=== PATIENT | male | born 1950 | race Caucasian/White ===

== ENCOUNTER → 2023-05-04 14:52 | Outpatient (BNVA) | payer MEDICARE, OTHER, SELFPAY | PROVIDERS: Visit Provider Hospitalist | DX: Z01.811 Encounter for preprocedural respiratory examination (principal); J45.50 Severe persistent asthma, uncomplicated; J44.9 Chronic obstructive pulmonary disease, unspecified | CPT/HCPCS: 94010; 99202 ==

== ENCOUNTER 2023-07-25 13:02 | Outpatient (AMB) | payer MEDICARE, OTHER, SELFPAY ==
[2023-07-25 13:20] VITALS: BP 120/68; PULSE 76; O2SAT 95; BMI 21.0
--- NOTE | 2023-07-25 13:20 | MHC.OFFVIS ---
Intake Vital Signs 07/25/23 13:20 Height 5 ft 6 in Weight 130 lb BMI 21.0 BP 120/68 Blood Pressure Location Lt brachial Position Sitting Pulse 76 Pulse Source Pulse Oximeter Pulse Oximetry (%) 95 Oxygen Delivery Method Room Air Intake Visit Reasons: Asthma Physical Education Instructor Required: No Allergies Iodinated Contrast Media [IV Dye, Iodine Containing] Allergy (Severe, Unverified 07/25/23 13:22) ANAPHYLAXIS peanut [Peanut] Allergy (Severe, Unverified 07/25/23 13:22) ANAPHYLAXIS codeine [Codeine] Allergy (Unknown, Unverified 07/25/23 13:22) NAUSEA HPI HPI Comments History of Present Illness Details 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 As far as he can remember he has had asthma. The patient recently moved from [place] to the [facility]. Since he moved to the [facility] they had a significant asthma flare-up which he needed high doses of prednisone. The patient did take some time but feels like he is back to his baseline. He is doing well on the Advair 500 and he also takes singular. The patient also has a rescue inhaler that he uses at times. The patient was found to have an inguinal hernia and was evaluated by surgeon. Subheading the surgery but because of his asthma he needs to be further optimized from a respiratory status. In the office we did provide him with nebulized treatment and did do a pulmonary spirometry study. It appears the patient does have an obstructive process which appears to be fixed and therefore asthma COPD overlap syndrome. This appears to be mild in severity. Will optimize his respiratory drive I provided him a nebulizer that he used daily and also add Acapella valve for mucus clearance. We will also switch his Advair to Trelegy to see we can provide better bronchodilation. The patient at this point is medically optimized from a respiratory status may proceed with anesthesia and surgery. 07/25/2023 the patient is here for pulmonary follow-up visit. The patient did undergo a surgery without any apparent complications or issues. He recovered well. However, 2 weeks after she started developing increasing chest tightness and wheezing coughing. He will to coughing spells moderate severity. He start using his nebulizer again because has been helpful. He has been doing at least once a day. He also continues on the Trelegy inhaler. The coughing spells are significant. In the office he does have significant wheezing and rhonchi. Diffuse throughout. We did given 2 DuoNeb treatments. The patient also will receive some Solu-Medrol for the significant wheezing. Patient understands that he will start a course of antibiotics and also prednisone. He will be traveling tomorrow also make sure that he has enough medicine to lasting for a least a couple weeks. The patient needs to get his allergy testing done in addition to that regular blood work to assess his immune system. He will continue with the Trelegy. He also travel with the nebulizer and I did recommend for him to consider a travel nebulizer. Will follow-up in about 4-6 weeks. I which point we will review the data. If the a the patient has any significant allergic induced asthma or eosinophilic asthma will consider biologic therapy at that point. [facility] Medical History (Updated 07/25/23 @ 22:51 by Gage Piña MD) Asthma-COPD overlap syndrome Pre-op chest exam Asthma Social History (Updated 05/04/23 @ 15:24 by NORBERT Lainez) Patient Tobacco Use Status: Never used Tobacco Review of Systems Const Denies fever(s) Eyes Denies change in vision ENT Reports nasal congestion Card Denies chest pain and Reports dyspnea on exertion Resp Reports change in phlegm color, Reports chest congestion, Reports cough, Reports dyspnea on exertion and Reports wheezing GI Reports as per HPI Musc Reports no additional complaints Skin/Breast Denies rash Neuro Reports no additional complaints Manav/Lymph Denies easy bleeding and Denies lymphadenopathy Aller/Immun Reports wheezing Physical Exam Vital Signs: Last Vital Signs Pulse 76 07/25/23 13:20 BP 120/68 07/25/23 13:20 Pulse Ox 95 07/25/23 13:20 Oxygen Delivery Method Room Air 07/25/23 13:20 BMI result Body Mass Index 21.0 Const General: comfortable HEENT Head: Yes normocephalic Neck Neck: Yes supple Chest Chest palpation & inspection: normal inspection of the chest Resp Effort & Inspection: normal respiratory effort, Actively coughing Quality: actively coughing and prolonged expiratory phase Auscultation: rhonchi, wheezes and diminished lung sounds Cardio Rate: regular rate Rhythm: regular rhythm Heart sounds: S1 normal heart sound present and S2 normal heart sound present GI Palpation (GI): Soft to palpation Skin General skin exam: no rashes or lesions noted Extrem General: Yes no clubbing, cyanosis or edema Office Procedures Nebulizer Treatment Nebulizer Treatment 05301-Yphhawtyl/MDI RX initial, or Nebulizer Subsequent Treatment Office Meds methylprednisolone sod suc(PF) 125 mg/2 mL solution for injection Performing Provider: Gaeg Piña MD Performing Location: [facility] Administered by: Michelle Conley LPN on 07/25/23 14:27 Dose Route Admin Location Dispensed Lot Number Expiration Date [place] [employer] 125 mg IM left buttock 2 mL [id number] 08/05/25 6885-7667-75 [employer] ipratropium 0.5 mg-albuterol 3 mg (2.5 mg base)/3 mL nebulization soln Performing Provider: Gage Piña MD Performing Location: [facility] Administered by: Michelle Conley LPN on 07/25/23 14:29 Dose Route Admin Location Dispensed Lot Number Expiration Date NDC [employer] 3 mL inhalation 3 mL [id number] 11/05/24 0904-9879-53 [employer] Assessment & Plan Assessment & Plan (1) Asthma: Code(s): J45.909 - Unspecified asthma, uncomplicated Qualifiers: Asthma complication type: with acute exacerbation Asthma persistence: persistent Asthma severity: severe Qualified Code(s): J45.51 - Severe persistent asthma with (acute) exacerbation (2) Asthma-COPD overlap syndrome: Code(s): J44.9 - Chronic obstructive pulmonary disease, unspecified (3) Tracheobronchitis: Code(s): J40 - Bronchitis, not specified as acute or chronic Plan Duonebs x 2 Solumedrol 125mg IM x 1 Start Doxycycline x 10 days Prednisone taper Bloodword / Allergy testing. May benefit from Biologic therapy cotniune Trelegy 200 DEYA as needed nebulizer requesting an acapella valve-has not received it CPT with acapella valve continue singulair F/U 3-4 weeks Orders: Orders AMB Nebulizer Treatment Today J45.909 - Unspecified asthma, uncomplicated AMB Methylprednisolone Injection Today J45.909 - Unspecified asthma, uncomplicated Medications: New prednisone PO daily; Take 4 tabs x 5 days, then 3 tabs x 5 days, then 2 tabs daily x 5 days, then 1 tab x 5 days to complete. 20 days 50 tabs 0RF doxycycline monohydrate 100 mg PO BID 14 days 28 tabs 0RF Coding Level of Care Code Est Pt Level 5 (82982) Diagnoses Severe persistent asthma with acute exacerbation J45.51 Asthma complication type: with acute exacerbation Asthma persistence: persistent Asthma severity: severe Asthma-COPD overlap syndrome J44.9 Tracheobronchitis J40 CPT Codes Nebulizer Treatment - Nebulizer Treatment, initial or subsequent: [id number]/MDI RX initial, or Nebulizer Subsequent Treatment ([id number]) Time Spent (min) 60
== END 2023-07-25 14:10 | disposition home or self-care (01) ==
PROVIDERS: PCP Internal Medicine; Visit Provider Hospitalist
DX: J45.909 Unspecified asthma, uncomplicated (principal)
CPT/HCPCS: 99215

== ENCOUNTER → 2023-07-25 13:02 | Outpatient (BNVA) | payer MEDICARE, OTHER, SELFPAY | PROVIDERS: PCP Internal Medicine; Visit Provider Hospitalist | DX: J45.51 Severe persistent asthma with (acute) exacerbation (principal); J44.9 Chronic obstructive pulmonary disease, unspecified; J40 Bronchitis, not specified as acute or chronic | CPT/HCPCS: 94640; 96372; 99212; J2930 ==

== ENCOUNTER 2023-08-30 10:26 | Outpatient (AMB) | payer MEDICARE, OTHER, SELFPAY ==
[2023-08-30 10:35] VITALS: BP 126/70; PULSE 90; O2SAT 98; BMI 21.0
--- NOTE | 2023-08-30 10:35 | A.OFFVIS_ITS ---
Intake Vital Signs 08/30/23 10:35 Height 5 ft 6 in Weight 129 lb 13.636 oz BMI 21.0 BP 126/70 Blood Pressure Location Lt brachial Position Sitting Pulse 90 Pulse Source Pulse Oximeter Pulse Oximetry (%) 98 Oxygen Delivery Method Room Air Intake Visit Reasons: lab results Payroll Consultant Required: No Allergies Iodinated Contrast Media [IV Dye, Iodine Containing] Allergy (Severe, Unverified 08/30/23 10:37) ANAPHYLAXIS peanut [Peanut] Allergy (Severe, Unverified 08/30/23 10:37) ANAPHYLAXIS codeine [Codeine] Allergy (Unknown, Unverified 08/30/23 10:37) NAUSEA HPI HPI Comments History of Present Illness Details 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 As far as he can remember he has had asthma. The patient recently moved from [place] to the [facility]. Since he moved to the [facility] they had a significant asthma flare-up which he needed high doses of prednisone. The patient did take some time but feels like he is back to his baseline. He is doing well on the Advair 500 and he also takes singular. The patient also has a rescue inhaler that he uses at times. The patient was found to have an inguinal hernia and was evaluated by surgeon. Subheading the surgery but because of his asthma he needs to be further optimized from a respiratory status. In the office we did provide him with nebulized treatment and did do a pulmonary spirometry study. It appears the patient does have an obstructive process which appears to be fixed and therefore asthma COPD overlap syndrome. This appears to be mild in severity. Will optimize his respiratory drive I provided him a nebulizer that he used daily and also add Acapella valve for mucus clearance. We will also switch his Advair to Trelegy to see we can provide better bronchodilation. The patient at this point is medically optimized from a respiratory status may proceed with anesthesia and surgery. 07/25/2023 the patient is here for pulmon [place] follow-up visit. The patient did undergo a surgery without any apparent complications or issues. He recovered well. However, 2 weeks after she started developing increasing chest tightness and wheezing coughing. He will to coughing spells moderate severity. He start using his nebulizer again because has been helpful. He has been doing at least once a day. He also continues on the Trelegy inhaler. The coughing spells are significant. In the office he does have significant wheezing and rhonchi. Diffuse throughout. We did given 2 DuoNeb treatments. The patient also will receive some Solu-Medrol for the significant wheezing. Patient understands that he will start a course of antibiotics and also prednisone. He will be traveling tomorrow also make sure that he has enough medicine to lasting for a least a couple weeks. The patient needs to get his allergy testing done in addition to that regular blood work to assess his immune system. He will continue with the Trelegy. He also travel with the nebulizer and I did recommend for him to consider a travel nebulizer. Will follow-up in about 4-6 weeks. I which point we will review the data. If the a the patient has any significant allergic induced asthma or eosinophilic asthma will consider biologic therapy at that point. 08/30/2023 the patient is here for a pul [place] follow-up visit. He has been having significant chest tightness and also had worsening productive cough. It seems like the cough has subsided some but he still complains the chest tightness. Moderate severity. He has been using his respiratory therapy. Also been using nebulizer. We try getting a sputum culture today but he was not able. We did review his blood work that he had done recently. He has eosinophils are significantly elevated at 900. Also, his IgE is elevated above 4k. The patient has significant allergies to Aspergillus among other mold allergies. 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 The patient has significant wheezing at this time. He will need additional prednisone. At this point due to his severe asthma and allergic components he will be a great candidate for Dupixent. We will send the prescription to the pharmacy to start it. Will await a results of the sputum culture. I will also request a chest x-ray to assess for any central bronchiectasis typical of ABPA. The patient does live in an old house. There is definitely mold in the basement and also potentially upstairs. I did request that he try to avoid the mold if possible specially in the basement. 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 Pre-op chest exam Asthma Social History (Updated 05/04/23 @ 15:24 by NORBERT Lainez) Patient Tobacco Use Status: Never used Tobacco Review of Systems Const Denies fever(s) Eyes Denies change in vision ENT Reports nasal congestion Card Denies chest pain and Reports dyspnea on exertion Resp Reports change in phlegm color, Reports chest congestion, Reports cough, Reports dyspnea on exertion and Reports wheezing GI Reports as per HPI Musc Reports no additional complaints Skin/Breast Denies rash Neuro Reports no additional complaints Manav/Lymph Denies easy bleeding and Denies lymphadenopathy Aller/Immun Reports wheezing Physical Exam Vital Signs: Last Vital Signs Pulse 90 08/30/23 10:35 BP 126/70 08/30/23 10:35 Pulse Ox 98 08/30/23 10:35 Oxygen Delivery Method Room Air 08/30/23 10:35 BMI result Body Mass Index 21.0 Const General: comfortable HEENT Head: Yes normocephalic Neck Neck: Yes supple Chest Chest palpation & inspection: normal inspection of the chest Resp Effort & Inspection: normal respiratory effort, Actively coughing Quality: actively coughing and prolonged expiratory phase Auscultation: rhonchi, wheezes and diminished lung sounds Cardio Rate: regular rate Rhythm: regular rhythm Heart sounds: S1 normal heart sound present and S2 normal heart sound present GI Palpation (GI): Soft to palpation Skin General skin exam: no rashes or lesions noted Extrem General: Yes no clubbing, cyanosis or edema Assessment & Plan Assessment & Plan (1) Asthma: Code(s): J45.909 - Unspecified asthma, uncomplicated Qualifiers: Asthma severity: severe Asthma persistence: persistent Asthma complication type: with acute exacerbation Qualified Code(s): J45.51 - Severe persistent asthma with (acute) exacerbation (2) Asthma-COPD overlap syndrome: Code(s): J44.9 - Chronic obstructive pulmonary disease, unspecified (3) ABPA (allergic bronchopulmonary aspergillosis): Code(s): B44.81 - Allergic bronchopulmonary aspergillosis Plan start Dupixent Prednisone taper sputum culture CXR cotniune Trelegy 200 daily DEYA as needed nebulizer CPT with acapella valve continue singulair F/U 8 weeks Orders: Orders XR chest 2V Today J40 - Bronchitis, not specified as acute or chronic Medications: New prednisone PO daily; Take 2 tabs daily x 14 days, then 1 tab daily x 14 days 28 days 42 tabs 0RF Coding Level of Care Code Est Pt Level 4 (77983) Diagnoses Severe persistent asthma with acute exacerbation J45.51 Asthma severity: severe Asthma persistence: persistent Asthma complication type: with acute exacerbation Asthma-COPD overlap syndrome J44.9 ABPA (allergic bronchopulmonary aspergillosis) B44.81 Time Spent (min) 17
== END 2023-08-30 11:08 | disposition home or self-care (01) ==
PROVIDERS: PCP Internal Medicine; Visit Provider Hospitalist
DX: J45.51 Severe persistent asthma with (acute) exacerbation (principal); J44.9 Chronic obstructive pulmonary disease, unspecified; B44.81 Allergic bronchopulmonary aspergillosis
CPT/HCPCS: 99214

== ENCOUNTER 2023-08-30 10:26 | Outpatient (REF) | payer MEDICARE, OTHER, SELFPAY ==
--- NOTE | ~2023-08-30 | XR_ITS ---
EXAMINATION: XR CHEST 2 VIEWS CLINICAL INFORMATION: Bronchitis. COMPARISON: None. TECHNIQUE: Frontal and lateral views of the chest were obtained. FINDINGS: The heart, great vessels, pulmonary vasculature and mediastinum are normal. The lungs show no focal infiltrate, effusion or pneumothorax. There is mild hyperinflation. There is no acute osseous abnormality. XR/XR chest 2V IMPRESSION: No active cardiopulmonary disease. There is mild hyperinflation.
== END 2023-08-30 10:27 | disposition home or self-care (01) ==
LOC: HO.XRAY 10:26
PROVIDERS: PCP Internal Medicine; Visit Provider Hospitalist
DX: J40 Bronchitis, not specified as acute or chronic (principal); J45.51 Severe persistent asthma with (acute) exacerbation; B44.81 Allergic bronchopulmonary aspergillosis; Z79.899 Other long term (current) drug therapy
CPT/HCPCS: 71046; 99212

== ENCOUNTER 2023-09-14 09:54 | Outpatient (AMB) | payer MEDICARE, OTHER, SELFPAY ==
[2023-09-14 13:44] VITALS: BP 110/62; PULSE 92; O2SAT 99
--- NOTE | 2023-09-14 13:44 | MHC.OFFVIS ---
Intake Vital Signs 09/14/23 13:44 Height 5 ft 6 in BP 110/62 Blood Pressure Location Lt brachial Position Sitting Pulse 92 Pulse Source Pulse Oximeter Pulse Oximetry (%) 99 Oxygen Delivery Method Room Air Intake Visit Reasons: Dupixent teach Allergies Iodinated Contrast Media [IV Dye, Iodine Containing] Allergy (Severe, Unverified 09/14/23 13:44) ANAPHYLAXIS peanut [Peanut] Allergy (Severe, Unverified 09/14/23 13:44) ANAPHYLAXIS codeine [Codeine] Allergy (Unknown, Unverified 09/14/23 13:44) NAUSEA Medication List - Last Reconciled 09/14/23 by Emma Pollard LPN acetaminophen (Tylenol Extra Strength) 500 mg PO Q6H PRN albuterol sulfate 90 mcg/actuation 2 puffs inhalation Q4H PRN amoxicillin-pot clavulanate 875-125 mg 1 tab PO BID 10 days aspirin (Ailyn Low Dose Aspirin) 81 mg PO DAILY calcium carbonate-vitamin D3 600 mg-20 mcg (800 unit) (Caltrate 600 plus D) 1 tab PO QAM carboxymethylcellulose-glycern 0.5-0.9 % (Refresh Optive) 1 drp ophthalmic (eye) BID cetirizine (Zyrtec) 10 mg PO DAILY PRN cholecalciferol (vitamin D3) 25 mcg PO DAILY dupilumab (Dupixent) 300 mg (2 mL) subcut Q2W 12 months fluticasone propionate 50 mcg/actuation sprays intranasal xoawirsysai-daczxkflf-qpyltexg 200-62.5-25 mcg (Trelegy Ellipta) 1 inh inhalation DAILY 30 days guaifenesin ER (Mucinex) 1,200 mg PO Q12H magnesium citrate 250 mg PO DAILY montelukast 10 mg PO DAILY kcwuzeamewec-uhavllhy-xaskkj 1 tab PO DAILY omeprazole 20 mg PO DAILY prednisone PO daily; Take 2 tabs daily x 14 days, then 1 tab daily x 14 days 28 days sumatriptan succinate mg PO HPI Dupixent teach HPI Details Father 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 Medication Dupixent 300mg/2mL pre-filled pen (patient?s own meds) Loading dose of 600mg given by the patient in 2 SQ injections; injection #1 R thigh;? injection #2 L thigh? Lot# [id number] expires 07/06/2025. Patient aware his next injection is in 15 days. Nurse visit only.? 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
== END 2023-09-14 11:08 | disposition home or self-care (01) ==
PROVIDERS: PCP Internal Medicine; Visit Provider Hospitalist
DX: J44.9 Chronic obstructive pulmonary disease, unspecified (principal)

== ENCOUNTER → 2023-09-14 09:54 | Outpatient (BNVA) | payer MEDICARE, OTHER, SELFPAY | PROVIDERS: PCP Internal Medicine; Visit Provider Hospitalist | DX: J44.9 Chronic obstructive pulmonary disease, unspecified (principal) | CPT/HCPCS: 99211 ==

== ENCOUNTER 2023-10-09 10:23 | Outpatient (REF) | payer MEDICARE, OTHER, SELFPAY | END 2023-10-09 10:24 | disposition home or self-care (01) | LOC: HO.LAB 10:23 | PROVIDERS: Visit Provider Hospitalist | DX: J40 Bronchitis, not specified as acute or chronic (principal); J45.51 Severe persistent asthma with (acute) exacerbation | CPT/HCPCS: 87070; 87205 ==

== ENCOUNTER 2023-10-11 14:45 | Outpatient (REF) | payer MEDICARE, OTHER, SELFPAY ==
--- NOTE | ~2023-10-11 | XR_ITS ---
EXAMINATION: XR CHEST CLINICAL INFORMATION: Cough. COMPARISON: Chest radiograph 08/30/2023. TECHNIQUE: 2 views of the chest were obtained. FINDINGS: Normal appearance of the cardiomediastinal silhouette. Slightly increased central peribronchial cuffing. Questionable very subtle focal hazy airspace opacities projecting over the right lower lobe. Increased streaky opacities projecting over the retrocardiac region. No pleural effusion. No pneumothorax. Thoracic spondylosis. No acute osseous findings. Visualized upper abdomen is within normal limits. XR/XR chest 2V IMPRESSION: Findings are suspicious for an atypical infectious/inflammatory process with subtle infiltrates in the right lower lobe, and infiltrates versus worsening subsegmental atelectasis in the left lower lobe. Recommend short-term follow-up chest radiograph after treatment.
== END 2023-10-11 14:46 | disposition home or self-care (01) ==
LOC: HO.XRAY 14:45
PROVIDERS: PCP Internal Medicine; Visit Provider Nurse Practitioner Family
DX: J18.0 Bronchopneumonia, unspecified organism (principal); J44.9 Chronic obstructive pulmonary disease, unspecified
CPT/HCPCS: 71046; 94640; 99212; J2930

== ENCOUNTER 2023-10-11 14:45 | Outpatient (AMB) | payer MEDICARE, OTHER, SELFPAY ==
[2023-10-11 14:51] VITALS: BP 138/70; PULSE 66; O2SAT 96; BMI 21.0
--- NOTE | 2023-10-11 14:51 | MHC.OFFVIS ---
Intake Vital Signs 10/11/23 14:51 Height 5 ft 6 in Weight 130 lb BMI 21.0 BP 138/70 Blood Pressure Location Lt brachial Position Sitting Pulse 66 Pulse Source Pulse Oximeter Pulse Oximetry (%) 96 Oxygen Delivery Method Room Air Intake Visit Reasons: persistent cough Web Programmer Required: No Varitype Operator: Varitype Operator offered & declined Accompanied by: Self / Same As Patient Allergies Iodinated Contrast Media [IV Dye, Iodine Containing] Allergy (Severe, Unverified 10/11/23 14:55) ANAPHYLAXIS peanut [Peanut] Allergy (Severe, Unverified 10/11/23 14:55) ANAPHYLAXIS codeine [Codeine] Allergy (Unknown, Unverified 10/11/23 14:55) NAUSEA Medication List - Last Reconciled 10/11/23 by Michelle Conley LPN acetaminophen (Tylenol Extra Strength) 500 mg PO Q6H PRN albuterol sulfate 90 mcg/actuation 2 puffs inhalation Q4H PRN aspirin (Ailyn Low Dose Aspirin) 81 mg PO DAILY calcium carbonate-vitamin D3 600 mg-20 mcg (800 unit) (Caltrate 600 plus D) 1 tab PO QAM carboxymethylcellulose-glycern 0.5-0.9 % (Refresh Optive) 1 drp ophthalmic (eye) BID cetirizine (Zyrtec) 10 mg PO DAILY PRN cholecalciferol (vitamin D3) 25 mcg PO DAILY doxycycline hyclate 100 mg PO BID 10 days dupilumab (Dupixent) 300 mg (2 mL) subcut Q2W 12 months fluticasone propionate 50 mcg/actuation sprays intranasal owikyxytiuu-whqlfbxgp-eritatts 200-62.5-25 mcg (Trelegy Ellipta) 1 inh inhalation DAILY 30 days guaifenesin ER (Mucinex) 1,200 mg PO Q12H magnesium citrate 250 mg PO DAILY montelukast 10 mg PO DAILY azltldcztzev-pyononfk-kyyrep 1 tab PO DAILY omeprazole 20 mg PO DAILY prednisone PO daily; Take 6 tabs daily x 3 days, then 5 tabs x 3 days, then 4 tabs x 3 days, then 3 tabs x 3 days, then 2 tabs daily x 3 days, then 1 tab x 3 days to complete. 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 He recently started Dupixent last month as he was suboptimally controlled on Trelegy and xopenex nebulizer PRN. He was seen two weeks ago for a sick visit, started on doxycyline and used xopenx with minimal improvements in symptoms. Today he presents with continued symptoms of chest tightness, dyspnea, chest congestion, and productive cough with green sputum. He reports a fever of 101.2 at the start of symptoms, but has not had any fevers since. He denies chills or sick contacts. He had called the office today and Dr. Piña has sent in azithromycin 500 mg x 5 days and an extended course of prednisone but given continuation of symptoms suggested patient come in for evaluation. 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 Pre-op chest exam Asthma Social History (Updated 05/04/23 @ 15:24 by Chrissy Marr [facility]) Patient Tobacco Use Status: Never used Tobacco Review of Systems Const Denies chills, Denies excessive sweating, Denies headache(s) and Denies night sweats Eyes Denies dry eyes, Denies irritation and Denies itchy eyes ENT Reports Normal hearing present, Denies headache(s), Denies nasal congestion, Denies nasal discharge, Denies post nasal drip and Denies sore throat Card Denies chest pain, Denies chest pain at rest, Denies chest pain with activity, Denies claudication, Denies leg edema, Denies orthopnea and Denies paroxysmal nocturnal dyspnea Resp Denies pain on inspiration, Denies pain with cough, Denies stridor and Denies wheezing Musc Denies myalgias Neuro Reports Normal hearing present and Denies headache(s) Endo Denies excessive sweating Manav/Lymph Denies lymphadenopathy Aller/Immun Denies itchy eyes, Denies seasonal rhinorrhea and Denies wheezing Physical Exam Vital Signs: Last Vital Signs Pulse 66 10/11/23 14:51 BP 138/70 10/11/23 14:51 Pulse Ox 96 10/11/23 14:51 Oxygen Delivery Method Room Air 10/11/23 14:51 BMI result Body Mass Index 21.0 Const General: cooperative, well developed and alert Nutritional Appearance: thin Orientation/consciousness: patient oriented x3 Limitations: no limitations HEENT Head: Yes normal to inspection, Yes normocephalic and Yes atraumatic Ears: hearing grossly normal bilaterally and external ears normal Eyes General: appearance normal, both eyes and all related structures Eyelids: Yes eyelids normal Sclerae: sclerae normal EOM: EOMs intact bilaterally Neck Neck: Yes normal visual inspection and Yes no lymphadenopathy Lymphatic: no lymphadenopathy noted Chest Chest palpation & inspection: normal inspection of the chest Resp Other: coarse rhonchi and expiratory wheezing throughout, minimally improved with nebulizer Effort & Inspection: normal respiratory effort, able to speak in complete sentences, no audible wheezes, no stridor, not tachypneic, no tripod positioning and no use of accessory muscles Cardio Jugular venous distension: no JVD Rate: regular rate Rhythm: regular rhythm Skin Other: warm, dry General skin exam: no rashes or lesions noted Neuro General: patient oriented x3 Cranial nerves: Yes Normal hearing present Cognition (Neuro): normal cognition Gait exam (Neuro): Normal gait present Extrem General: Yes normal to inspection, Yes capillary refill normal, Yes no clubbing, cyanosis or edema and Yes no pedal edema Psych Appearance: grossly normal and well kempt Speech and movement: Normal speech and movement present and Clear speech present Affect: normal affect Attitude: cooperative Thought process: Normal thought process present Thought content: Normal thought content present Insight: Good insight present (Psych) Judgement: Good judgement present (Psych) Office Procedures Nebulizer Treatment Nebulizer Treatment [id number]/MDI RX initial, or Nebulizer Subsequent Treatment Office Meds methylprednisolone sod suc(PF) 125 mg/2 mL solution for injection Performing Provider: Emily Huitron NP Performing Location: [facility] [place] [facility] Administered by: Michelle Conley LPN on 10/11/23 15:35 Dose Route Admin Location Dispensed Lot Number Expiration Date [facility] [employer] 125 mg IM left buttock 2 mL [id number] 02/03/26 3704-6328-19 [employer] levalbuterol HCl 1.25 mg/3 mL solution for nebulization Performing Provider: Emily Huitron NP Performing Location: [facility] [place] [facility] Administered by: Michelle Conley LPN on 10/11/23 15:38 Dose Route Admin Location Dispensed Lot Number Expiration Date [facility] [employer] 1.25 mg inhalation 3 mL [id number] 02/03/25 59361-181-06 [employer] Assessment & Plan Assessment & Plan (1) Asthma-COPD overlap syndrome: Code(s): J44.9 - Chronic obstructive pulmonary disease, unspecified Plan Patient with bronchitic symptoms that have been unchanged despite doxycyline. He was sent azithromycin and an extended course of prednisone today by Dr. Piña. Sputum performed on 10/09 but unfortunately was contaminated. On exam patient with coarse rhonchi and expiratory wheezing as well as persistent hacking cough throughout visit. He was given a nebulizer treatment in office as well as solumedrol. Advised patient to obtain CXR today and start previously prescribed medications. Patient aware if symptoms do not improve to call office and seek emergent care if they worsen. All questions were answered and patient is in agreement of plan. Will follow up with Dr. Piña for regularly scheduled appointment or sooner if needed. Orders: Orders AMB Methylprednisolone Injection Today J44.9 - Chronic obstructive pulmonary disease, unspecified, J45.909 - Unspecified asthma, uncomplicated AMB Nebulizer Treatment Today J44.9 - Chronic obstructive pulmonary disease, unspecified, J45.909 - Unspecified asthma, uncomplicated XR chest 2V Today J18.0 - Bronchopneumonia, unspecified organism Medications: New levalbuterol HCl 1.25 mg (3 mL) inhalation Q4-6H PRN 90 mL 3RF shortness of breath or wheezing Coding Level of Care Code Est Pt Level 4 (61745) Diagnoses Asthma-COPD overlap syndrome J44.9 CPT Codes Nebulizer Treatment - Nebulizer Treatment, initial or subsequent: [id number]/MDI RX initial, or Nebulizer Subsequent Treatment ([id number])
== END 2023-10-11 15:46 | disposition home or self-care (01) ==
PROVIDERS: PCP Internal Medicine; Visit Provider Nurse Practitioner Family
DX: J44.9 Chronic obstructive pulmonary disease, unspecified (principal); J45.909 Unspecified asthma, uncomplicated
CPT/HCPCS: 99214

== ENCOUNTER 2023-10-18 09:25 | Outpatient (AMB) | payer MEDICARE, OTHER, SELFPAY ==
[2023-10-18 09:30] VITALS: BP 128/70; PULSE 89; O2SAT 97; BMI 20.6
--- NOTE | 2023-10-18 09:30 | A.OFFVIS_ITS ---
Intake Vital Signs 10/18/23 09:30 Height 5 ft 6 in Weight 127 lb 13.89 oz BMI 20.6 BP 128/70 Blood Pressure Location Lt brachial Position Sitting Pulse 89 Pulse Source Pulse Oximeter Pulse Oximetry (%) 97 Oxygen Delivery Method Room Air Intake Visit Reasons: Emphysema Carbonizer Tester Required: No Allergies Iodinated Contrast Media [IV Dye, Iodine Containing] Allergy (Severe, Unverified 10/18/23 09:33) ANAPHYLAXIS peanut [Peanut] Allergy (Severe, Unverified 10/18/23 09:33) ANAPHYLAXIS codeine [Codeine] Allergy (Unknown, Unverified 10/18/23 09:33) NAUSEA HPI HPI Comments History of Present Illness Details 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 As far as he can remember he has had asthma. The patient recently moved from [place] to the [facility]. Since he moved to the [facility] they had a significant asthma flare-up which he needed high doses of prednisone. The patient did take some time but feels like he is back to his baseline. He is doing well on the Advair 500 and he also takes singular. The patient also has a rescue inhaler that he uses at times. The patient was found to have an inguinal hernia and was evaluated by surgeon. Subheading the surgery but because of his asthma he needs to be further optimized from a respiratory status. In the office we did provide him with nebulized treatment and did do a pulmonary spirometry study. It appears the patient does have an obstructive process which appears to be fixed and therefore asthma COPD overlap syndrome. This appears to be mild in severity. Will optimize his respiratory drive I provided him a nebulizer that he used daily and also add Acapella valve for mucus clearance. We will also switch his Advair to Trelegy to see we can provide better bronchodilation. The patient at this point is medically optimized from a respiratory status may proceed with anesthesia and surgery. 07/25/2023 the patient is here for pulmon anabel follow-up visit. The patient did undergo a surgery without any apparent complications or issues. He recovered well. However, 2 weeks after she started developing increasing chest tightness and wheezing coughing. He will to coughing spells moderate severity. He start using his nebulizer again because has been helpful. He has been doing at least once a day. He also continues on the Trelegy inhaler. The coughing spells are significant. In the office he does have significant wheezing and rhonchi. Diffuse throughout. We did given 2 DuoNeb treatments. The patient also will receive some Solu-Medrol for the significant wheezing. Patient understands that he will start a course of antibiotics and also prednisone. He will be traveling tomorrow also make sure that he has enough medicine to lasting for a least a couple weeks. The patient needs to get his allergy testing done in addition to that regular blood work to assess his immune system. He will continue with the Trelegy. He also travel with the nebulizer and I did recommend for him to consider a travel nebulizer. Will follow-up in about 4-6 weeks. I which point we will review the data. If the a the patient has any significant allergic induced asthma or eosinophilic asthma will consider biologic therapy at that point. 08/30/2023 the [facility] He has been having significant chest tightness and also had worsening productive cough. It seems like the cough has subsided some but he still complains the chest tightness. Moderate severity. He has been using his respiratory therapy. Also been using nebulizer. We try getting a sputum culture today but he was not able. We did review his blood work that he had done recently. He has eosinophils are significantly elevated at 900. Also, his IgE is elevated above 4k. The patient has significant allergies to Aspergillus among other mold allergies. 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 The patient has significant wheezing at this time. He will need additional prednisone. At this point due to his severe asthma and allergic components he will be a great candidate for Dupixent. We will send the prescription to the pharmacy to start it. Will await a results of the sputum culture. I will also request a chest x-ray to assess for any central bronchiectasis typical of ABPA. The patient does live in an old house. There is definitely mold in the basement and also potentially upstairs. I did request that he try to avoid the mold if possible specially in the basement. 10/18/2023 the patient is here for a pul [facility] follow-up visit. Recently was evaluated by 1 of my colleagues because of worsening respiratory symptoms. Apparently he was doing fairly well until he went down to [facility] The patient the patient developed fevers and also chest congestion and decided to drive back to the [place]. He started developing worsening symptoms. He did call the office and we did send medications the pharmacy. However he was not getting any better and he was then evaluated by 1 of my colleagues. X-ray demonstrated bilobar atypical looking pneumonia. He was kept on the azithromycin and then he was then placed on Vantin. He has 4 more days of Vantin. He is also weaning down the prednisone down to 40 mg and will be starting 30 mg tomorrow. Although he still has significant chest tightness and wheezing rhonchi. Therefore will provide him with Solu-Medrol today with hope that he can continue to wean down the prednisone. In addition to that he will continue with his antibiotics. We were able to get a sputum culture sent that to the microbiology laboratory. Will have the patient return 2 weeks, in the meantime in the meantime he is going to continue with current respiratory regimen. 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 Pre-op chest exam Asthma Social History (Updated 05/04/23 @ 15:24 by Chrissy Marr [facility]) Patient Tobacco Use Status: Never used Tobacco Review of Systems Const Denies fever(s) Eyes Denies change in vision ENT Reports hoarseness and Reports nasal congestion Card Denies chest pain and Reports dyspnea on exertion Resp Reports change in phlegm color, Reports chest congestion, Reports cough, Denies hemoptysis, Reports dyspnea on exertion and Reports wheezing GI Reports as per HPI Musc Reports no additional complaints Skin/Breast Denies rash Neuro Reports no additional complaints Manav/Lymph Denies easy bleeding and Denies lymphadenopathy Aller/Immun Reports wheezing Physical Exam Vital Signs: Last Vital Signs Pulse 89 10/18/23 09:30 BP 128/70 10/18/23 09:30 Pulse Ox 97 10/18/23 09:30 Oxygen Delivery Method Room Air 10/18/23 09:30 BMI result Body Mass Index 20.6 Const General: comfortable HEENT Head: Yes normocephalic Neck Neck: Yes supple Chest Chest palpation & inspection: normal inspection of the chest Resp Effort & Inspection: normal respiratory effort, Actively coughing Quality: actively coughing and prolonged expiratory phase Auscultation: rhonchi, wheezes and diminished lung sounds Cardio Rate: regular rate Rhythm: regular rhythm Heart sounds: S1 normal heart sound present and S2 normal heart sound present GI Palpation (GI): Soft to palpation Skin General skin exam: no rashes or lesions noted Extrem General: Yes no clubbing, cyanosis or edema Office Meds methylprednisolone sod suc(PF) 125 mg/2 mL solution for injection Performing Provider: Gage Piña MD Performing Location: [facility] [place] [facility] Administered by: Emma Pollard LPN on 10/18/23 09:55 Dose Route Admin Location Dispensed Lot Number Expiration Date [employer] 125 mg IM R buttock 2 mL [id number] 11/05/25 9687-3059-39 [employer] Assessment & Plan Assessment & Plan (1) Asthma: Code(s): J45.909 - Unspecified asthma, uncomplicated Qualifiers: Asthma complication type: with acute exacerbation Asthma persistence: persistent Asthma severity: severe Qualified Code(s): J45.51 - Severe persistent asthma with (acute) exacerbation (2) Asthma-COPD overlap syndrome: Code(s): J44.9 - Chronic obstructive pulmonary disease, unspecified (3) ABPA (allergic bronchopulmonary aspergillosis): Code(s): B44.81 - Allergic bronchopulmonary aspergillosis (4) Bronchopneumonia: Code(s): J18.0 - Bronchopneumonia, unspecified organism Plan continue vantin continue prednisone taper, will receive Solumedrol IM x 1 today as well sputum cx continue Dupixent cotniune Trelegy 200 daily DEYA as needed nebulizer CPT with acapella valve continue singulair F/U 2 weeks Orders: Orders Sputum Cult + Gram stain Today J18.0 - Bronchopneumonia, unspecified organism AMB Methylprednisolone Injection Today J44.9 - Chronic obstructive pulmonary disease, unspecified Coding Level of Care Code Est Pt Level 4 (94473) Diagnoses Severe persistent asthma with acute exacerbation J45.51 Asthma complication type: with acute exacerbation Asthma persistence: persistent Asthma severity: severe Asthma-COPD overlap syndrome J44.9 ABPA (allergic bronchopulmonary aspergillosis) B44.81 Bronchopneumonia J18.0 Time Spent (min) 18
== END 2023-10-18 09:59 | disposition home or self-care (01) ==
PROVIDERS: PCP Internal Medicine; Visit Provider Hospitalist
DX: J45.51 Severe persistent asthma with (acute) exacerbation (principal); J44.9 Chronic obstructive pulmonary disease, unspecified; B44.81 Allergic bronchopulmonary aspergillosis; J18.0 Bronchopneumonia, unspecified organism
CPT/HCPCS: 99214

== ENCOUNTER 2023-10-18 09:25 | Outpatient (REF) | payer MEDICARE, OTHER, SELFPAY | END 2023-10-18 09:26 | disposition home or self-care (01) | LOC: HO.LNP 09:25 | PROVIDERS: PCP Internal Medicine; Visit Provider Hospitalist | DX: J18.0 Bronchopneumonia, unspecified organism (principal); J43.9 Emphysema, unspecified; J45.51 Severe persistent asthma with (acute) exacerbation; B44.81 Allergic bronchopulmonary aspergillosis | CPT/HCPCS: 87070; 87077; 87185; 87205; 96372; 99212; J2930 ==

== ENCOUNTER 2023-11-02 10:23 | Outpatient (AMB) | payer MEDICARE, OTHER, SELFPAY ==
[2023-11-02 10:38] VITALS: BP 118/60; PULSE 80; O2SAT 98; BMI 20.6
--- NOTE | 2023-11-02 10:38 | MHC.OFFVIS ---
Intake Vital Signs 11/02/23 10:38 Height 5 ft 6 in Weight 127 lb 13.89 oz BMI 20.6 BP 118/60 Blood Pressure Location Rt brachial Position Sitting Pulse 80 Pulse Source Pulse Oximeter Pulse Oximetry (%) 98 Oxygen Delivery Method Room Air Intake Visit Reasons: Emphysema Packaging Technician Required: No Allergies Iodinated Contrast Media [IV Dye, Iodine Containing] Allergy (Severe, Unverified 11/02/23 10:40) ANAPHYLAXIS peanut [Peanut] Allergy (Severe, Unverified 11/02/23 10:40) ANAPHYLAXIS codeine [Codeine] Allergy (Unknown, Unverified 11/02/23 10:40) NAUSEA HPI HPI Comments History of Present Illness Details 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 As far as he can remember he has had asthma. The patient recently moved from [place] to the [facility]. Since he moved to the [facility] they had a significant asthma flare-up which he needed high doses of prednisone. The patient did take some time but feels like he is back to his baseline. He is doing well on the Advair 500 and he also takes singular. The patient also has a rescue inhaler that he uses at times. The patient was found to have an inguinal hernia and was evaluated by surgeon. Subheading the surgery but because of his asthma he needs to be further optimized from a respiratory status. In the office we did provide him with nebulized treatment and did do a pulmonary spirometry study. It appears the patient does have an obstructive process which appears to be fixed and therefore asthma COPD overlap syndrome. This appears to be mild in severity. Will optimize his respiratory drive I provided him a nebulizer that he used daily and also add Acapella valve for mucus clearance. We will also switch his Advair to Trelegy to see we can provide better bronchodilation. The patient at this point is medically optimized from a respiratory status may proceed with anesthesia and surgery. 07/25/2023 the patient is here for pulmonary follow-up visit. The patient did undergo a surgery without any apparent complications or issues. He recovered well. However, 2 weeks after she started developing increasing chest tightness and wheezing coughing. He will to coughing spells moderate severity. He start using his nebulizer again because has been helpful. He has been doing at least once a day. He also continues on the Trelegy inhaler. The coughing spells are significant. In the office he does have significant wheezing and rhonchi. Diffuse throughout. We did given 2 DuoNeb treatments. The patient also will receive some Solu-Medrol for the significant wheezing. Patient understands that he will start a course of antibiotics and also prednisone. He will be traveling tomorrow also make sure that he has enough medicine to lasting for a least a couple weeks. The patient needs to get his allergy testing done in addition to that regular blood work to assess his immune system. He will continue with the Trelegy. He also travel with the nebulizer and I did recommend for him to consider a travel nebulizer. Will follow-up in about 4-6 weeks. I which point we will review the data. If the a the patient has any significant allergic induced asthma or eosinophilic asthma will consider biologic therapy at that point. 08/30/2023 the patient is here for a pulmonary follow-up visit. He has been having significant chest tightness and also had worsening productive cough. It seems like the cough has subsided some but he still complains the chest tightness. Moderate severity. He has been using his respiratory therapy. Also been using nebulizer. We try getting a sputum culture today but he was not able. We did review his blood work that he had done recently. He has eosinophils are significantly elevated at 900. Also, his IgE is elevated above 4k. The patient has significant allergies to Aspergillus among other mold allergies. 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 The patient has significant wheezing at this time. He will need additional prednisone. At this point due to his severe asthma and allergic components he will be a great candidate for Dupixent. We will send the prescription to the pharmacy to start it. Will await a results of the sputum culture. I will also request a chest x-ray to assess for any central bronchiectasis typical of ABPA. The patient does live in an old house. There is definitely mold in the basement and also potentially upstairs. I did request that he try to avoid the mold if possible specially in the basement. 10/18/2023 the patient is here for a pulmonary follow-up visit. Recently was evaluated by 1 of my colleagues because of worsening respiratory symptoms. Apparently he was doing fairly well until he went down to [facility] for a [facility]. The patient the patient developed fevers and also chest congestion and decided to drive back to the [place]. He started developing worsening symptoms. He did call the office and we did send medications the pharmacy. However he was not getting any better and he was then evaluated by 1 of my colleagues. X-ray demonstrated bilobar atypical looking pneumonia. He was kept on the azithromycin and then he was then placed on Vantin. He has 4 more days of Vantin. He is also weaning down the prednisone down to 40 mg and will be starting 30 mg tomorrow. Although he still has significant chest tightness and wheezing rhonchi. Therefore will provide him with Solu-Medrol today with hope that he can continue to wean down the prednisone. In addition to that he will continue with his antibiotics. We were able to get a sputum culture sent that to the microbiology laboratory. Will have the patient return 2 weeks, in the meantime in the meantime he is going to continue with current respiratory regimen. 11/02/2023 the patient is here for pulmonary follow-up visit. He is feeling a lot better. His sputum culture was positive for resistant organism, Haemophilus influenzae which was penicillin resistant. Therefore all the antibiotics that he took were not effective. We did put him a level floxacillin he did a lot better. His mucus burden significantly improved. He has also been off the prednisone which is reassuring. Will take advantage today to give him a dose of Prevnar 20 to cover him for future pneumonias. In addition to that the patient has been having improvement in his breathing he has been tolerating the Dupixent injections well. I did advise him that he should be careful not to get sick again as he still recovering from his recent illness. He is off prednisone overall will keep him off prednisone. He should be using his nebulizer at least once a day. I did reach out to the [facility] because he should be using the Acapella valve that we had requested sometime ago. Will follow-up in 3 months. 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 Pre-op chest exam Asthma Social History (Updated 05/04/23 @ 15:24 by Chrissy Marr Dea) Patient Tobacco Use Status: Never used Tobacco Review of Systems Const Denies fever(s) Eyes Denies change in vision ENT Reports hoarseness and Reports nasal congestion Card Denies chest pain and Reports dyspnea on exertion Resp Reports change in phlegm color, Reports chest congestion, Reports cough, Denies hemoptysis, Reports dyspnea on exertion and Reports wheezing GI Reports as per HPI Musc Reports no additional complaints Skin/Breast Denies rash Neuro Reports no additional complaints Manav/Lymph Denies easy bleeding and Denies lymphadenopathy Aller/Immun Reports wheezing Physical Exam Vital Signs: Last Vital Signs Pulse 80 11/02/23 10:38 BP 118/60 11/02/23 10:38 Pulse Ox 98 11/02/23 10:38 Oxygen Delivery Method Room Air 11/02/23 10:38 BMI result Body Mass Index 20.6 Const General: comfortable HEENT Head: Yes normocephalic Neck Neck: Yes supple Chest Chest palpation & inspection: normal inspection of the chest Resp Effort & Inspection: normal respiratory effort and prolonged expiratory phase Auscultation: no rhonchi, wheezes and diminished lung sounds Cardio Rate: regular rate Rhythm: regular rhythm Heart sounds: S1 normal heart sound present and S2 normal heart sound present GI Palpation (GI): Soft to palpation Skin General skin exam: no rashes or lesions noted Extrem General: Yes no clubbing, cyanosis or edema Immunizations pneumoc 20-yaquelin conj-dip cr(PF) 0.5 mL IM syringe Performing Provider: Gage Piña MD Performing Location: [facility] [place] [facility] Administered by: Michelle Conley LPN on 11/02/23 11:20 Dose Route Admin Location Dispensed Lot Number Expiration Date NDC Toggler 0.5 mL IM Left Deltoid 0.5 mL [id number] 06/05/24 0724-8660-72 [employer] VIS Given Date VIS Provided VIS Publication Date 11/02/23 Single Vaccine 23 Eligibility Eligibility Date Funding Source Not [facility] Eligible 11/02/23 Private Assessment & Plan Assessment & Plan (1) Asthma: Code(s): J45.909 - Unspecified asthma, uncomplicated Qualifiers: Asthma complication type: uncomplicated Asthma persistence: persistent Asthma severity: severe Qualified Code(s): J45.50 - Severe persistent asthma, uncomplicated (2) Asthma-COPD overlap syndrome: Code(s): J44.9 - Chronic obstructive pulmonary disease, unspecified (3) ABPA (allergic bronchopulmonary aspergillosis): Code(s): B44.81 - Allergic bronchopulmonary aspergillosis (4) Bronchopneumonia: Code(s): J18.0 - Bronchopneumonia, unspecified organism Plan continue Dupixent cotniune Trelegy 200 daily DEYA as needed nebulizer CPT with acapella valve continue singulair F/U 3 months Orders: Orders Pneumococcal 20 Immunization 11/02/23 J44.9 - Chronic obstructive pulmonary disease, unspecified, J45.909 - Unspecified asthma, uncomplicated Medications: New levalbuterol HCl 1.25 mg (3 mL) inhalation BID 30 days 180 mL 11RF J44.9 - Chronic obstructive pulmonary disease, unspecified Coding Level of Care Code Est Pt Level 4 (20964) Diagnoses Severe persistent asthma without complication J45.50 Asthma complication type: uncomplicated Asthma persistence: persistent Asthma severity: severe Asthma-COPD overlap syndrome J44.9 ABPA (allergic bronchopulmonary aspergillosis) B44.81 Bronchopneumonia J18.0 Time Spent (min) 16
== END 2023-11-02 11:40 | disposition home or self-care (01) ==
PROVIDERS: PCP Internal Medicine; Visit Provider Hospitalist
DX: J45.50 Severe persistent asthma, uncomplicated (principal); J44.9 Chronic obstructive pulmonary disease, unspecified; B44.81 Allergic bronchopulmonary aspergillosis; J18.0 Bronchopneumonia, unspecified organism
CPT/HCPCS: 99214

== ENCOUNTER → 2023-11-02 10:23 | Outpatient (BNVA) | payer MEDICARE, OTHER, SELFPAY | PROVIDERS: PCP Internal Medicine; Visit Provider Hospitalist | DX: Z23 Encounter for immunization (principal); J18.0 Bronchopneumonia, unspecified organism; J45.50 Severe persistent asthma, uncomplicated; J44.9 Chronic obstructive pulmonary disease, unspecified; B44.81 Allergic bronchopulmonary aspergillosis | CPT/HCPCS: 90471; 90677; 99212 ==

== ENCOUNTER 2024-01-04 13:12 | Outpatient (AMB) | payer MEDICARE, OTHER, SELFPAY ==
[2024-01-04 13:23] VITALS: BP 120/60; PULSE 72; O2SAT 98; BMI 20.6
--- NOTE | 2024-01-04 13:23 | A.OFFVIS_ITS ---
Intake Vital Signs 01/04/24 13:23 Height 5 ft 6 in Weight 127 lb 13.89 oz BMI 20.6 BP 120/60 Blood Pressure Location Lt brachial Position Sitting Pulse 72 Pulse Source Pulse Oximeter Pulse Oximetry (%) 98 Oxygen Delivery Method Room Air Intake Visit Reasons: COPD [employer] Required: No Allergies Iodinated Contrast Media [IV Dye, Iodine Containing] Allergy (Severe, Unverified 01/04/24 13:26) ANAPHYLAXIS peanut [Peanut] Allergy (Severe, Unverified 01/04/24 13:26) ANAPHYLAXIS codeine [Codeine] Allergy (Unknown, Unverified 01/04/24 13:26) NAUSEA HPI HPI Comments History of Present Illness Details 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 As far as he can remember he has had asthma. The patient recently moved from [place] to the [facility]. Since he moved to the [facility] they had a significant asthma flare-up which he needed high doses of prednisone. The patient did take some time but feels like he is back to his baseline. He is doing well on the Advair 500 and he also takes singular. The patient also has a rescue inhaler that he uses at times. The patient was found to have an inguinal hernia and was evaluated by surgeon. Subheading the surgery but bec ause of his asthma he needs to be further optimized from a respiratory status. In the office we did provide him with nebulized treatment and did do a pulmonary spirometry study. It appears the patient does have an obstructive process which appears to be fixed and therefore asthma COPD overlap syndrome. This appears to be mild in severity. Will optimize his respiratory drive I provided him a nebulizer that he used daily and also add Acapella valve for mucus clearance. We will also switch his Advair to Trelegy to see we can provide better bronchodilation. The patient at this point is medically optimized from a respiratory status may proceed with anesthesia and surgery. 07/25/2023 the patient is here for pulmon anabel follow-up visit. The patient did undergo a surgery without any apparent complications or issues. He recovered well. However, 2 weeks after she started developing increasing chest tightness and wheezing coughing. He will to coughing spells moderate severity. He start using his nebulizer again because has been helpful. He has been doing at least once a day. He also continues on the Trelegy inhaler. The coughing spells are significant. In the office he does have significant wheezing and rhonchi. Diffuse throughout. We did given 2 DuoNeb treatments. The patient also will receive some Solu-Medrol for the significant wheezing. Patient understands that he will start a course of antibiotics and also prednisone. He will be traveling tomorrow also make sure that he has enough medicine to lasting for a least a couple weeks. The patient needs to get his allergy testing done in addition to that regular blood work to assess his immune system. He will continue with the Trelegy. He also travel with the nebulizer and I did recommend for him to consider a travel nebulizer. Will follow-up in about 4-6 weeks. I which point we will review the data. If the a the patient has any significant allergic induced asthma or eosinophilic asthma will consider biol ogic therapy at that point. 08/30/2023 the patient is here for a pul [facility] follow-up visit. He has been having significant chest tightness and also had worsening productive cough. It seems like the cough has subsided some but he still complains the chest tightness. Moderate severity. He has been using his respiratory therapy. Also been using nebulizer. We try getting a sputum culture today but he was not able. We did review his blood work that he had done recently. He has eosinophils are significantly elevated at 900. Also, his IgE is elevated above 4k. The patient has significant allergies to Aspergillus among other mold allergies. 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 The patient has significant wheezing at this time. He will need additional prednisone. At this point due to his severe asthma and allergic components he will be a great candidate for Dupixent. We will send the prescription to the pharmacy to start it. Will await a results of the sputum culture. I will also request a chest x-ray to assess for any central bronchiectasis typical of ABPA. The patient does live in an old house. There is definitely mold in the basement and also potentially upstairs. I did request that he try to avoid the mold if possible specially in the basement. 10/18/2023 the patient is here for a pul [facility] follow-up visit. Recently was evaluated by 1 of my colleagues because of worsening respiratory symptoms. Apparently he was doing fairly well until he went down to [facility] for alirio abdi. The patient the patient developed fevers and also chest congestion and decided to drive back [place]. He started developing worsening symptoms. He did call the office and we did send medications the pharmacy. However he was not getting any better and he was then evaluated by 1 of my colleagues. X-ray demonstrated bilobar atypical looking pneumonia. He was kept on the azithromycin and then he was then placed on Vantin. He has 4 more days of Vantin. He is also weaning down the prednisone down to 40 mg and will be starting 30 mg tomorrow. Although he still has significant chest tightness and wheezing rhonchi. Therefore will provide him with Solu-Medrol today with hope that he can continue to wean down the prednisone. In addition to that he will continue with his antibiotics. We were able to get a sputum culture sent that to the microbiology laboratory. Will have the patient return 2 weeks, in the meantime in the meantime he is going to continue with current respiratory regimen. 11/02/2023 the patient is here for pulkatja marti follow-up visit. He is feeling a lot better. His sputum culture was positive for resistant organism, Haemophilus influenzae which was penicillin resistant. Therefore all the antibiotics that he took were not effective. We did put him a level floxacillin he did a lot better. His mucus burden significantly improved. He has also been off the prednisone which is reassuring. Will take advantage today to give him a dose of Prevnar 20 to cover him for future pneumonias. In addition to that the patient has been having improvement in his breathing he has been tolerating the Dupixent injections well. I did advise him that he should be careful not to get sick again as he still recovering from his recent illness. He is off prednisone overall will keep him off prednisone. He should be using his nebulizer at least once a day. I did reach out to the [employer] because he should be using the Acapella valve that we had requested sometime ago. Will follow-up in 3 months. 01/04/2024 the patient is here for a pulmonary follow-up visit. The patient has been having hard time with his breathing for the last 2 weeks. Was done in [place]. he was having significant hard time. He did not have any prednisone. Therefore he took the EpiPen in did improve his symptoms. He has been having significant cough chest congestion and wheezing. Moderate to severe. He has been using his nebulizer frequently. Has not seen really any significant improvement after starting the Dupixent. Been Dupixent now for about 3 months. Renewal he has not planned trip to go to [place] the coming weeks. Therefore, will go ahead and just treat him aggressively for now in order to improve his symptoms for his prolonged trip to [place]. Once he comes back we will talk about a bronchoscopy in order to be able to get some deep cultures an airway survey. We also talked about considering switching his biologic from Dupixent to Tezspire his specially if he does not respond to the new medication changes. The patient appears to have ABPA. Will go ahead and treat him with voriconazole in addition to that will start him on doxycycline as well the patient will need prednisone. His treatments not to MondayJanuary 12 will have him come back next week to assess him again prior to his long trip to [place] the office we did give him 2 treatments of Xopenex in addition to hypertonic saline to try to get a sputum culture but he was not able to do so. He did get Solu-Medrol in the office. I am hopeful that he feels better by tomorrow. 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 Pre-op chest exam Asthma Social History (Updated 05/04/23 @ 15:24 by NORBERT Lainez) Patient Tobacco Use Status: Never used Tobacco Review of Systems Const Denies fever(s) Eyes Denies change in vision ENT Reports hoarseness and Reports nasal congestion Card Denies chest pain and Reports dyspnea on exertion Resp Reports change in phlegm color, Reports chest congestion, Reports cough, Denies hemoptysis, Reports dyspnea on exertion and Reports wheezing GI Reports as per HPI Musc Reports no additional complaints Skin/Breast Denies rash Neuro Reports no additional complaints Manav/Lymph Denies easy bleeding and Denies lymphadenopathy Aller/Immun Reports wheezing Physical Exam Vital Signs: Last Vital Signs Pulse 72 01/04/24 13:23 BP 120/60 01/04/24 13:23 Pulse Ox 98 01/04/24 13:23 Oxygen Delivery Method Room Air 01/04/24 13:23 BMI result Body Mass Index 20.6 Const General: comfortable HEENT Head: Yes normocephalic Neck Neck: Yes supple Chest Chest palpation & inspection: normal inspection of the chest Resp Effort & Inspection: normal respiratory effort and prolonged expiratory phase Auscultation: rhonchi, wheezes and diminished lung sounds Cardio Rate: regular rate Rhythm: regular rhythm Heart sounds: S1 normal heart sound present and S2 normal heart sound present GI Palpation (GI): Soft to palpation Skin General skin exam: no rashes or lesions noted Extrem General: Yes no clubbing, cyanosis or edema Office Procedures Nebulizer Treatment Nebulizer Treatment 28039-Glrbizjqx/MDI RX initial, or Nebulizer Subsequent Treatment Office Meds methylprednisolone sod suc(PF) 125 mg/2 mL solution for injection Performing Provider: Gage Piña MD Performing Location: [facility] Administered by: Michelle Conley LPN on 01/04/24 14:35 Dose Route Admin Location Dispensed Lot Number Expiration Date [facility] Licensed Esthetician 125 mg IM right buttock 2 mL [id number] 11/05/25 6565-1950-69 [employer] levalbuterol HCl 1.25 mg/3 mL solution for nebulization Performing Provider: Gage Piña MD Performing Location: [facility] Administered by: Michelle Conley LPN on 01/04/24 14:41 Dose Route Admin Location Dispensed Lot Number Expiration Date [facility] Licensed Esthetician 2.5 mg inhalation 6 mL [id number] 04/05/25 21050-395-02 [employer] sodium chloride 3 % for nebulization Performing Provider: Gage Piña MD Performing Location: [facility] Administered by: Michelle Conley LPN on 01/04/24 14:41 Dose Route Admin Location Dispensed Lot Number Expiration Date [facility] Licensed Esthetician 3 mL inhalation 3 mL [id number] 04/05/25 [id number] [facility] Assessment & Plan Assessment & Plan (1) Asthma: Code(s): J45.909 - Unspecified asthma, uncomplicated Qualifiers: Asthma severity: severe Asthma persistence: persistent Asthma complication type: with acute exacerbation Qualified Code(s): J45.51 - Severe persistent asthma with (acute) exacerbation (2) Asthma-COPD overlap syndrome: Code(s): J44.9 - Chronic obstructive pulmonary disease, unspecified (3) ABPA (allergic bronchopulmonary aspergillosis): Code(s): B44.81 - Allergic bronchopulmonary aspergillosis (4) Bronchopneumonia: Code(s): J18.0 - Bronchopneumonia, unspecified organism Plan continue Dupixent for now, ?switching to Tezspire if no better stop Trelegy 200 daily due to new dx of [place] start Breo start Voriconazole start Doxycycline Solumedrol IM, then prednisone taper Epi pen Bloodwork today DEYA as needed nebulizer CPT with acapella valve Will need a Chest once he returns from [place] Consider Bronchoscopy if no better continue singulair F/U 1 week Orders: Orders Basic Metabolic Panel Today J44.9 - Chronic obstructive pulmonary disease, unspecified Immunoglobulins,IgG IgA IgM Today J44.9 - Chronic obstructive pulmonary disease, unspecified Immunoglobulin E Today J44.9 - Chronic obstructive pulmonary disease, unspecified Erythrocyte Sedimentation Rate Today J44.9 - Chronic obstructive pulmonary disease, unspecified Sputum Cult + Gram stain Today J44.9 - Chronic obstructive pulmonary disease, unspecified Complete Blood Count Auto Diff Today J44.9 - Chronic obstructive pulmonary disease, unspecified Immunoglobulin G Subclasses Today J44.9 - Chronic obstructive pulmonary disease, unspecified Liver Panel Today J44.9 - Chronic obstructive pulmonary disease, unspecified AMB Methylprednisolone Injection Today J44.9 - Chronic obstructive pulmonary disease, unspecified AMB Nebulizer Treatment Today J40 - Bronchitis, not specified as acute or chronic, J44.9 - Chronic obstructive pulmonary disease, unspecified Medications: New prednisone 30 mg (3 x 10 mg) PO DAILY 30 days 90 tabs 1RF J44.9 - Chronic obstructive pulmonary disease, unspecified epinephrine (EpiPen 2-Enrique) for 2 doses 0.3 mg (0.3 mL) IM Q10M 30 days PRN 2 ea 6RF anaphylaxis J44.9 - Chronic obstructive pulmonary disease, unspecified, J45.40 - Moderate persistent asthma, uncomplicated voriconazole administer on empty stomach, at least 1 hour before or after meal(s) 200 mg PO Q12H 30 days 60 tabs 1RF J44.9 - Chronic obstructive pulmonary disease, unspecified fluticasone furoate-vilanterol 200-25 mcg/dose (Breo Ellipta) 1 inh inhalation DAILY 30 days 60 ea 11RF J44.9 - Chronic obstructive pulmonary disease, unspecified, J45.909 - Unspecified asthma, uncomplicated doxycycline monohydrate 100 mg PO BID 21 days 42 tabs 0RF J44.9 - Chronic obstructive pulmonary disease, unspecified Changed From albuterol sulfate 90 mcg/actuation 2 puffs inhalation Q4H PRN J44.9 - Chronic obstructive pulmonary disease, unspecified To albuterol sulfate 90 mcg/actuation 2 puffs inhalation Q4H 30 days PRN 8.5 grams 12RF shortness of breath or wheezing J44.9 - Chronic obstructive pulmonary disease, unspecified Coding Level of Care Code Est Pt Level 5 (03725) Diagnoses Severe persistent asthma with acute exacerbation J45.51 Asthma severity: severe Asthma persistence: persistent Asthma complication type: with acute exacerbation Asthma-COPD overlap syndrome J44.9 ABPA (allergic bronchopulmonary aspergillosis) B44.81 Bronchopneumonia J18.0 CPT Codes Nebulizer Treatment - Nebulizer Treatment, initial or subsequent: 58192- Nebulizer/MDI RX initial, or Nebulizer Subsequent Treatment ([id number]) Time Spent (min) 45
== END 2024-01-04 14:28 | disposition home or self-care (01) ==
PROVIDERS: PCP Internal Medicine; Visit Provider Hospitalist
DX: J45.51 Severe persistent asthma with (acute) exacerbation (principal); B44.81 Allergic bronchopulmonary aspergillosis; J18.0 Bronchopneumonia, unspecified organism
CPT/HCPCS: 99215

== ENCOUNTER 2024-01-04 13:12 | Outpatient (REF) | payer MEDICARE, OTHER, SELFPAY ==
[2024-01-04 14:50] LABS: MANUAL DIFF FLAG NO
[2024-01-04 15:32] LABS: Basophils Percent Auto 0.5 % (0-2); Eosinophils Absolute Auto 0.1 X10*3/uL (0.0-0.4); Eosinophils Percent Auto 2.2 % (0-4); Hematocrit 41.5 % (42.0-52.0); Hemoglobin 13.4 g/dl (14.0-18.0); Imm Gran Abs Auto 0.02 X10*3/uL (0.00-0.03); Imm Gran Pct Auto 0.3 % (0.0-0.4); Lymphocytes Absolute Auto 2.5 X10*3/uL (1.2-4.9); Lymphocytes Percent Auto 38.9 % (20-40); Mean Corpuscular HGB Conc 32.3 g/dl (31.0-36.0); Mean Corpuscular Hemoglobin 31.2 pg (27.0-33.0); Mean Corpuscular Volume 96.5 fL (80.0-98.0); Mean Platelet Volume 11.4 fL (9.4-12.4); Monocytes Absolute Auto 0.6 X10*3/uL (0.1-1.2); Monocytes Percent Auto 9.4 % (2-11); Neutrophils Absolute Auto 3.1 x10*3/uL (2.0-8.3); Neutrophils Percent Auto 48.7 % (45-73); Platelet Count 247 X10*3/uL (160-400); Red Cell Distribution Width 13.1 % (11.0-16.0); White Blood Count 6.4 X10*3/uL (4.8-10.8)
[2024-01-04 15:59] LABS: Alanine Aminotransferase 19 U/L (0-40); Albumin Level 4.6 g/dL (3.5-5.0); Alkaline Phosphatase 57 U/L (39-117); Anion Gap 14 (12-20); Aspartate Amino Transferase 23 U/L (5-37); Bilirubin Direct 0.1 mg/dL (0.0-0.5); Bilirubin Total 0.3 mg/dL (0.0-1.0); Blood Urea Nitrogen 12 mg/dL (9-16); Calcium 9.7 mg/dL (8.4-10.2); Carbon Dioxide 27 mmol/L (22-29); Chloride 107 mmol/L (96-108); Estimated Glomerular Filt Rate > 60; Glucose Random 100 mg/dL (60-115); Potassium 3.8 mmol/L (3.3-5.1); Sodium 144 mmol/L (135-145); Total Protein 7.1 g/dL (6.5-8.0)
[2024-01-04 16:23] LABS: Erythrocyte Sedimentation Rate 2 MM/HR (0-15)
[2024-01-05 13:22] LABS: Immunoglobulin G Subclass 1 326 mg/dL (382-929); Immunoglobulin G Subclass 2 226 mg/dL (241-700); Immunoglobulin G Subclass 3 51 mg/dL (22-178); Immunoglobulin G Subclass 4 41.7 mg/dL (4-86); Immunoglobulin G Total 629 mg/dL (600-1540)
[2024-01-08 13:43] LABS: IgA 189 mg/dL (70-320); IgG 649 mg/dL (600-1540); IgM 41 mg/dL (50-300)
[2024-01-10 14:18] LABS: Class Alternaria alternata 3; Class Aspergillus fumigatus 4; Class Bermuda Grass 0/1; Class Birch 0/1; Class Cat Dander 0; Class Cladosporium herbarum 2; Class Cockroach 0; Class Common Ragweed 0; Class Cottonwood 0/1; Class Derm. pterony 0/1; Class Dermatophagoides farinae 1; Class Dog Dander 0; Class Elm 0/1; Class Maple Box Elder 0; Class Mountain Cedar 0/1; Class Mouse Urine Protein 0; Class Mugwort 0/1; Class Oak 0; Class Penicillium crysogenum 2; Class Rough Pigweed 0; Class Sheep Sorrel 0/1; Class Sycamore 0/1; Class Timothy Grass 0; Class Walnut Tree 0/1; Class White Ash 0/1; Class White Mulberry 0; D001 IgE D pteronyssinus 0.29 kU/L; D002 - IgE D farinae 0.42 kU/L; E001 - IgE Cat Dander <0.10 kU/L; E005 - IgE Dog Dander <0.10 kU/L; E072-IgE Mouse Urine <0.10 kU/L; G002 IgE Bermuda Grass 0.13 kU/L; G006 - IgE Timothy Grass <0.10 kU/L; I006-IgE Cockroach, German <0.10 kU/L; Immunoglobulin E 516 kU/L (<OR=114); M002 - IgE Cladosporium herbar 0.79 kU/L; M006 - IgE Alternaria alternat 4.89 kU/L; T001 IgE Maple/Box Elder <0.10 kU/L; T003 IgE Common Silver Birch 0.16 kU/L; T006 - IgE Cedar, Mountain 0.17 kU/L; T007 - IgE Oak, White <0.10 kU/L; T008 IgE Elm, American 0.14 kU/L; T011 - IgE Maple Leaf Sycamore 0.16 kU/L; T014 - IgE Cottonwood 0.16 kU/L; T015 - IgE Ash, White 0.26 kU/L; T070 - IgE White Mulberry <0.10 kU/L; W001 - IgE Ragweed, Short <0.10 kU/L; W006 - IgE Mugwort 0.15 kU/L; W014 IgE Pigweed, Common <0.10 kU/L; W018 IgE Sheep Sorrel 0.17 kU/L
== END 2024-01-04 13:13 | disposition home or self-care (01) ==
LOC: HO.LAB 13:12
PROVIDERS: PCP Internal Medicine; Visit Provider Hospitalist
DX: Z01.811 Encounter for preprocedural respiratory examination (principal); J44.9 Chronic obstructive pulmonary disease, unspecified; J45.51 Severe persistent asthma with (acute) exacerbation; B44.81 Allergic bronchopulmonary aspergillosis; J18.0 Bronchopneumonia, unspecified organism; J40 Bronchitis, not specified as acute or chronic; Z79.899 Other long term (current) drug therapy
CPT/HCPCS: 36415; 80048; 80076; 82784; 82785; 85025; 85652; 86003; 94640; 96372; 99212; J2930

== ENCOUNTER 2024-01-11 10:31 | Outpatient (AMB) | payer MEDICARE, OTHER, SELFPAY ==
[2024-01-11 10:37] VITALS: BP 128/70; PULSE 88; O2SAT 98; BMI 20.6
--- NOTE | 2024-01-11 10:37 | MHC.OFFVIS ---
Intake Vital Signs 01/11/24 10:37 Height 5 ft 6 in Weight 127 lb 13.89 oz BMI 20.6 BP 128/70 Blood Pressure Location Lt brachial Position Sitting Pulse 88 Pulse Source Pulse Oximeter Pulse Oximetry (%) 98 Oxygen Delivery Method Room Air Intake Visit Reasons: COPD [employer]ice Required: No Allergies Iodinated Contrast Media [IV Dye, Iodine Containing] Allergy (Severe, Unverified 01/11/24 10:40) ANAPHYLAXIS peanut [Peanut] Allergy (Severe, Unverified 01/11/24 10:40) ANAPHYLAXIS codeine [Codeine] Allergy (Unknown, Unverified 01/11/24 10:40) NAUSEA HPI HPI Comments History of Present Illness Details 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 As far as he can remember he has had asthma. The patient recently moved from [place] to the [facility]. Since he moved to the [facility] they had a significant asthma flare-up which he needed high doses of prednisone. The patient did take some time but feels like he is back to his baseline. He is doing well on the Advair 500 and he also takes singular. The patient also has a rescue inhaler that he uses at times. The patient was found to have an inguinal hernia and was evaluated by surgeon. Subheading the surgery but because of his asthma he needs to be further optimized from a respiratory status. In the office we did provide him with nebulized treatment and did do a pulmonary spirometry study. It appears the patient does have an obstructive process which appears to be fixed and therefore asthma COPD overlap syndrome. This appears to be mild in severity. Will optimize his respiratory drive I provided him a nebulizer that he used daily and also add Acapella valve for mucus clearance. We will also switch his Advair to Trelegy to see we can provide better bronchodilation. The patient at this point is medically optimized from a respiratory status may proceed with anesthesia and surgery. 07/25/2023 the patient is here for pulmonary follow-up visit. The patient did undergo a surgery without any apparent complications or issues. He recovered well. However, 2 weeks after she started developing increasing chest tightness and wheezing coughing. He will to coughing spells moderate severity. He start using his nebulizer again because has been helpful. He has been doing at least once a day. He also continues on the Trelegy inhaler. The coughing spells are significant. In the office he does have significant wheezing and rhonchi. Diffuse throughout. We did given 2 DuoNeb treatments. The patient also will receive some Solu-Medrol for the significant wheezing. Patient understands that he will start a course of antibiotics and also prednisone. He will be traveling tomorrow also make sure that he has enough medicine to lasting for a least a couple weeks. The patient needs to get his allergy testing done in addition to that regular blood work to assess his immune system. He will continue with the Trelegy. He also travel with the nebulizer and I did recommend for him to consider a travel nebulizer. Will follow-up in about 4-6 weeks. I which point we will review the data. If the a the patient has any significant allergic induced asthma or eosinophilic asthma will consider biologic therapy at that point. 08/30/2023 the patient is here for a pulmonary follow-up visit. He has been having significant chest tightness and also had worsening productive cough. It seems like the cough has subsided some but he still complains the chest tightness. Moderate severity. He has been using his respiratory therapy. Also been using nebulizer. We try getting a sputum culture today but he was not able. We did review his blood work that he had done recently. He has eosinophils are significantly elevated at 900. Also, his IgE is elevated above 4k. The patient has significant allergies to Aspergillus among other mold allergies. 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 The patient has significant wheezing at this time. He will need additional prednisone. At this point due to his severe asthma and allergic components he will be a great candidate for Dupixent. We will send the prescription to the pharmacy to start it. Will await a results of the sputum culture. I will also request a chest x-ray to assess for any central bronchiectasis typical of ABPA. The patient does live in an old house. There is definitely mold in the basement and also potentially upstairs. I did request that he try to avoid the mold if possible specially in the basement. 10/18/2023 the patient is here for a pulmonary follow-up visit. Recently was evaluated by 1 of my colleagues because of worsening respiratory symptoms. Apparently he was doing fairly well until he went down to [facility]. The patient the patient developed fevers and also chest congestion and decided to drive back to the [place]. He started developing worsening symptoms. He did call the office and we did send medications the pharmacy. However he was not getting any better and he was then evaluated by 1 of my colleagues. X-ray demonstrated bilobar atypical looking pneumonia. He was kept on the azithromycin and then he was then placed on Vantin. He has 4 more days of Vantin. He is also weaning down the prednisone down to 40 mg and will be starting 30 mg tomorrow. Although he still has significant chest tightness and wheezing rhonchi. Therefore will provide him with Solu-Medrol today with hope that he can continue to wean down the prednisone. In addition to that he will continue with his antibiotics. We were able to get a sputum culture sent that to the microbiology laboratory. Will have the patient return 2 weeks, in the meantime in the meantime he is going to continue with current respiratory regimen. 11/02/2023 the patient is here for pulmonary follow-up visit. He is feeling a lot better. His sputum culture was positive for resistant organism, Haemophilus influenzae which was penicillin resistant. Therefore all the antibiotics that he took were not effective. We did put him a level floxacillin he did a lot better. His mucus burden significantly improved. He has also been off the prednisone which is reassuring. Will take advantage today to give him a dose of Prevnar 20 to cover him for future pneumonias. In addition to that the patient has been having improvement in his breathing he has been tolerating the Dupixent injections well. I did advise him that he should be careful not to get sick again as he still recovering from his recent illness. He is off prednisone overall will keep him off prednisone. He should be using his nebulizer at least once a day. I did reach out to the [employer] because he should be using the Acapella valve that we had requested sometime ago. Will follow-up in 3 months. 01/04/2024 the patient is here for a pulmonary follow-up visit. The patient has been having hard time with his breathing for the last 2 weeks. Was done in [place]. he was having significant hard time. He did not have any prednisone. Therefore he took the EpiPen in did improve his symptoms. He has been having significant cough chest congestion and wheezing. Moderate to severe. He has been using his nebulizer frequently. Has not seen really any significant improvement after starting the Dupixent. Been Dupixent now for about 3 months. Renewal he has not planned trip to go to [place] the coming weeks. Therefore, will go ahead and just treat him aggressively for now in order to improve his symptoms for his prolonged trip to [place]. Once he comes back we will talk about a bronchoscopy in order to be able to get some deep cultures an airway survey. We also talked about considering switching his biologic from Dupixent to Tezspire his specially if he does not respond to the new medication changes. The patient appears to have ABPA. Will go ahead and treat him with voriconazole in addition to that will start him on doxycycline as well the patient will need prednisone. His treatments not to MondayJanuary 12 will have him come back next week to assess him again prior to his long trip to [place] the office we did give him 2 treatments of Xopenex in addition to hypertonic saline to try to get a sputum culture but he was not able to do so. He did get Solu-Medrol in the office. I am hopeful that he feels better by tomorrow. 01/11/2024 the patient is here for a pulmonary follow-up visit. The patient although he has been feeling little better. He is tapering down prednisone down to 40 mg daily. He also started doxycycline. The patient just recently started voriconazole since he could not locate it. He is tolerating well. He is going to be leaving to [place] in the coming days. The patient has all his medicines available. Right now he still have some wheezing. Although, it is manageable right now. We did talk about considering bronchoscopy returns from [place]. We can provide the cultures and also [place] the airways in order to allow the medication to be more effective. We did review his blood work. Significant allergy specially to Aspergillus. Again, picture is consistent with allergic bronchopulmonary aspergillosis. 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 Pre-op chest exam Asthma Social History (Updated 05/04/23 @ 15:24 by NORBERT Lainez) Patient Tobacco Use Status: Never used Tobacco Review of Systems Const Denies fever(s) Eyes Denies change in vision ENT Reports hoarseness and Reports nasal congestion Card Denies chest pain and Reports dyspnea on exertion Resp Reports change in phlegm color, Reports chest congestion, Reports cough, Denies hemoptysis, Reports dyspnea on exertion and Reports wheezing GI Reports as per HPI Musc Reports no additional complaints Skin/Breast Denies rash Neuro Reports no additional complaints Manav/Lymph Denies easy bleeding and Denies lymphadenopathy Aller/Immun Reports wheezing Physical Exam Vital Signs: Last Vital Signs Pulse 88 01/11/24 10:37 BP 128/70 01/11/24 10:37 Pulse Ox 98 01/11/24 10:37 Oxygen Delivery Method Room Air 01/11/24 10:37 BMI result Body Mass Index 20.6 Const General: comfortable HEENT Head: Yes normocephalic Neck Neck: Yes supple Chest Chest palpation & inspection: normal inspection of the chest Resp Effort & Inspection: normal respiratory effort and prolonged expiratory phase Auscultation: rhonchi, wheezes and diminished lung sounds Cardio Rate: regular rate Rhythm: regular rhythm Heart sounds: S1 normal heart sound present and S2 normal heart sound present GI Palpation (GI): Soft to palpation Skin General skin exam: no rashes or lesions noted Extrem General: Yes no clubbing, cyanosis or edema Assessment & Plan Assessment & Plan (1) Asthma: Code(s): J45.909 - Unspecified asthma, uncomplicated Qualifiers: Asthma complication type: with acute exacerbation Asthma persistence: persistent Asthma severity: severe Qualified Code(s): J45.51 - Severe persistent asthma with (acute) exacerbation (2) Asthma-COPD overlap syndrome: Code(s): J44.9 - Chronic obstructive pulmonary disease, unspecified (3) ABPA (allergic bronchopulmonary aspergillosis): Code(s): B44.81 - Allergic bronchopulmonary aspergillosis Plan continue Dupixent for now, ?switching to Tezspire if no better stopped Trelegy 200 daily due to new dx of [place] continue Breo continue Voriconazole 6-8 weeks, will check bloodwork when he returns from [place] continue Doxycycline Epi pen DEYA as needed nebulizer CPT with acapella valve Bronchoscopy once he returns from [place], he will call the office continue singulair F/U 2 months Coding Level of Care Code Est Pt Level 4 (15773) Diagnoses Severe persistent asthma with acute exacerbation J45.51 Asthma complication type: with acute exacerbation Asthma persistence: persistent Asthma severity: severe Asthma-COPD overlap syndrome J44.9 ABPA (allergic bronchopulmonary aspergillosis) B44.81 Time Spent (min) 18
== END 2024-01-11 10:56 | disposition home or self-care (01) ==
PROVIDERS: PCP Internal Medicine; Visit Provider Hospitalist
DX: J45.51 Severe persistent asthma with (acute) exacerbation (principal); J44.9 Chronic obstructive pulmonary disease, unspecified; B44.81 Allergic bronchopulmonary aspergillosis
CPT/HCPCS: 99214

== ENCOUNTER → 2024-01-11 10:31 | Outpatient (BNVA) | payer MEDICARE, OTHER, SELFPAY | PROVIDERS: PCP Internal Medicine; Visit Provider Hospitalist | DX: J45.51 Severe persistent asthma with (acute) exacerbation (principal); J44.9 Chronic obstructive pulmonary disease, unspecified; B44.81 Allergic bronchopulmonary aspergillosis | CPT/HCPCS: 99212 ==